=== PATIENT | female | born 1975 | race Caucasian/White ===

== ENCOUNTER 2018-05-16 10:44 | Day surgery (SDC) | payer OTHER ==
[2018-05-16] MEDS ORDERED: ceFAZolin 2 GM/DEXTROSE 100 ML IV ONE (11:06)
[2018-05-16] MEDS ORDERED: LIDOCAINE 1% 2 ML INJ ID PRN (11:20)
[2018-05-16] MEDS ORDERED: LR 1,000 ML IV ONE (11:20)
[2018-05-16] MEDS ORDERED: BUPIVACAINE 0.5% 30 ML SDV ONE (11:27)
[2018-05-16] MEDS ORDERED: LIDOCAINE 1% 300 MG/30 ML SDV ONE (11:27)
[2018-05-16] MEDS ORDERED: ROPIVACAINE HCL 150 MG/30 ML INJ ONE ×2 (11:27→12:55)
[2018-05-16] MEDS ORDERED: BACITRACIN 50,000 UNITS/10 ML SYR IRR ONE (11:28)
[2018-05-16] MEDS ORDERED: ALBUTEROL 3 ML DEYVIAL IH PRN (12:28)
[2018-05-16] MEDS ORDERED: HYDROCODONE/APAP 5/325 TAB PO PRN (12:28)
[2018-05-16] MEDS ORDERED: DEXAMETHASONE 4 MG/ML VIAL IVP PRN (12:28)
[2018-05-16] MEDS ORDERED: ACETAMINOPHEN 500 MG TAB PO PRN (12:28)
[2018-05-16] MEDS ORDERED: HYDROmorphONE/DILAUDID 1 MG/ML INJ IVP PRN (12:28)
[2018-05-16] MEDS ORDERED: NALOXONE HCL 0.4 MG/ML INJ IVP PRN (12:28)
[2018-05-16] MEDS ORDERED: ONDANSETRON 4 MG/2 ML VIAL IVP PRN (12:28)
[2018-05-16] MEDS ORDERED: MIDAZOLAM 2 MG/2 ML VIAL IVP ONE (12:28)
--- NOTE | 2018-05-16 12:29 | PDANEPAE ---
ANE History of Present Illness Left Foot ANE Past Medical History - Cardiovascular History Hx Hypertension: No Hx Arrhythmias: No Hx Chest Pain: No Hx Coronary Artery / Peripheral Vascular Disease: No Hx CHF / Valvular Disease: No Hx Palpitations: No - Pulmonary History Hx COPD: No Hx Asthma/Reactive Airway Disease: No Hx Recent Upper Respiratory Infection: No Hx Oxygen in Use at Home: No Hx Sleep Apnea: No Sleep Apnea Screening Result - Last Documented: Negative - Neurologic History Hx Cerebrovascular Accident: No Hx Seizures: No Hx Dementia: No - Endocrine History Hx Diabetes: No - Renal History Hx Renal Disorders: No - Liver History Hx Hepatic Disorders: No - Neurological & Psychiatric Hx Hx Neurological and Psychiatric Disorders: No - Cancer History Hx Cancer: No - Congenital Disorder History Hx Congenital Disorders: No - GI History Hx Gastrointestinal Disorders: No - Other Health History Other Health History: wears glasses for tv only - Chronic Pain History Chronic Pain: No - Surgical History Prior Surgeries: 01/20/16 left foot surgery with [place]. tubal ligation ANE Review of Systems Review of Systems: - Exercise capacity METS (RN): 4 METS ANE Patient History - Allergies Allergies/Adverse Reactions: No Known Allergies Allergy (Verified 05/16/18 12:11) - Home Medications Home Medications: NK [No Known Home Meds] 05/15/18 [Last Taken Unknown] - NPO status NPO Since - Liquids (Date): 05/15/18 NPO Since - Liquids (Time): 23:00 NPO Since - Solids (Date): 05/16/18 NPO Since - Solids (Time): 19:30 - Smoking Hx Smoking Status: Former smoker - Family Anes Hx Family Hx Anesthesia Complications: none ANE Labs/Vital Signs - Vital Signs Blood Pressure: 117/82 Heart Rate: 70 Respiratory Rate: 16 O2 Sat (%): 94 Height: 170.18 cm Weight: 104.326 kg ANE Physical Exam - Airway Neck exam: FROM Mallampati Score: Class 2 - Pulmonary Pulmonary: clear to auscultation - Cardiovascular Cardiovascular: regular rate and rhythym - ASA Status ASA Status: II ANE Anesthesia Plan Anesthesia Plan: GA with mask
--- NOTE | 2018-05-16 12:35 | PDHPUP ---
History & Physical Update H&P update statement: This history and physical update is based on an assessment of the patient which was completed after admission or registration (within 24 hours), but prior to the surgery/procedure. H&P update: H&P reviewed & patient examined (no changes), no change in patient' s condition since H&P completed
[2018-05-16] MEDS ORDERED: PROPOFOL/EMULSION 500 MG/50 ML BOTTLE IV ONE ×2 (12:53→13:22)
[2018-05-16] MEDS ORDERED: fentaNYL 100 MCG/2 ML INJ ONE ×2 (12:56→14:35)
[2018-05-16] MEDS ORDERED: ONDANSETRON 4 MG/2 ML VIAL ONE (13:15)
[2018-05-16] MEDS ORDERED: DEXAMETHASONE 4 MG/ML VIAL ONE (13:15)
[2018-05-16] MEDS ORDERED: METOCLOPRAMIDE 10 MG/2 ML VIAL ONE (13:19)
--- NOTE | 2018-05-16 14:15 | POSTOPPROG ---
Post Op Note Date of Operation: 05/16/18 Surgeon: Nathalia Murillo Senior Cytogenetic Technologist: none Anesthesiologist: Anesthesia: LMA Pre-op Diagnosis: deep internal fixation, pain, loosening left foot Post-op Diagnosis: deep internal fixation ,left foot Indication: pain, hardware loosening Procedure: removal of deep internal fixation one plate two screws Findings: loose hardware Inf/Abcess present in the surg proc area at time of surgery?: No Depth: Deep Incisional (Fascial) EBL: Minimal Complications: none
--- NOTE | 2018-05-16 14:19 | POSTANESTH ---
Post Anesthetic Evaluation Cardiovascular Status: Normal, Stable Respiratory Status: Normal, Stable Level of Consciousness/Mental Status: Can Participate in Eval, Alert and Oriented Pain Control: Adequate, Prn Tx Ordered Nausea/Vomiting Control: Adequate, Prn Tx Ordered Complications Possibly Related to Anesthesia: None Noted
[2018-05-16] MEDS: fentaNYL 100 MCG/2 ML INJ IVP PRN ×2 (14:38→14:54)
[2018-05-16] MEDS ORDERED: HYDROCODONE/APAP 5/325 TAB ONE (14:44)
[2018-05-16 15:04] VITALS: BP 115/85
--- NOTE | 2018-05-16 15:42 | GOP ---
[f rep st] OPERATIVE REPORT DATE OF OPERATION: SURGEON: Nathalia Murillo DPM ANESTHESIA: Light general/monitored anesthesia care. ANESTHESIOLOGIST: Dr. Leonard Aguilera MD PREOPERATIVE DIAGNOSIS: Deep internal fixation complication, loosening, pain left foot. POSTOPERATIVE DIAGNOSIS: Deep internal fixation complication, loosening, pain left foot. PROCEDURE PERFORMED: Removal of hardware, navicular cuneiform joint, left foot , consisting of plate and 2 screws. FINDINGS: INDICATIONS: Acute onset of pain and swelling, left foot. X-rays demonstrating loosening of medial plate and 2 screws, clinically screw head palpable and painful. At this time, patient elects to proceed with removal of hardware. DESCRIPTION OF PROCEDURE: The patient was brought into the operating room and placed on the operating table in the supine position. Intravenous sedation/ light general was administered by the anesthesiologist. A posterior tibial and peripheral nerve block was obtained utilizing a total of 5 cc of 1% lidocaine plain, 5 cc of 0.5% Marcaine plain, 0.8 cc of 0.5% ropivacaine. The lower extremity was prepped and draped in the usual sterile manner. After the limb was elevated, it was exsanguinated with an Esmarch bandage. Ankle tourniquet was inflated to 230 mmHg, and the procedure was begun. Webril padding utilized under the ankle cuff. Attention was directed toward the medial aspect of the midfoot along previous incision line, where an estimated 2.5 cm incision was created. Incision was carefully deepened with care of neurovascular structures and clamped and cauterized bleeders. Torturous veins were noted and tied off and cauterized. Immediately below the skin and very obvious was the distal screw protruding, and this was removed manually as it was so loose, screwdriver not needed. Incision was carefully deepened through the periosteum. Note, tibialis anterior tendon was identified at the distal portion of the incision and the distal portion of the plate extended deep underneath tendon course. The proximal portion followed, and the screw head was also identified and noted to be very loose and removed without any difficulties. Fibrous adhesions were noted around the plate proximally, and they were removed. To free up the distal portion of the plate, [place] elevator was utilized underneath the tendon, and then with careful dissection and with proximal traction, the plate was eventually able to be freed and removed. The wound was copiously irrigated with bacitracin irrigation solution. There was no interruption to the tibialis anterior tendon. Periosteal and soft tissue closure achieved with 3-0 and 2-0 Vicryl. Tourniquet was released, and a normal hyperemic response was noted to all digits. There was significant bleeding, which was controlled with Surgicel , and then the vein was tied off again and cauterized. A separate stab incision created for exiting of a silastic drain, which was placed. 4-0 Monocryl utilized for subcutaneous closure. Skin was closed with 4-0 Prolene in a horizontal mattress and simple interrupted suture manner. Dressings included Xeroform, 4 x 4's, reinforced with fluff, Kerlix, and Hermes bandage. Patient tolerated the procedure and anesthesia well and left the operating room with vital signs stable and vascular status intact to all digits. There were no intraoperative complications. In postop recovery, the patient was doing well. Her will be providing her transportation home. She is to follow up in the office in 2 days for a wound check. An order written for new Cryo/Cuff. She may put full weight on the foot. Prognosis good. /[id number]/MODL MTDD
== END 2018-05-16 16:38 | disposition home or self-care (01) ==
LOC: FSGY 10:44
PROVIDERS: ATTEND Podiatrist
PROC: 0QPP04Z Removal of Internal Fixation Device from Left Metatarsal, Open Approach (ICD-10-PCS; principal; 2018-05-16 12:30)
DX: T84.223A Displacement of internal fixation device of bones of foot and toes, initial encounter (principal)
CPT/HCPCS: J0690; J1100; J2250; J2405; J2704; J2765; J2795; J3010